=== PATIENT | male | born 1985 | race Caucasian/White ===

== ENCOUNTER 2018-06-03 08:27 | Outpatient (CLI) | payer OTHER ==
--- NOTE | 2018-06-03 11:31 | RAD ---
CERVICAL SPINE 4 VIEWS: Date: 06/03/18 HISTORY: Acute neck pain. 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 COMPARISON: None FINDINGS: Incomplete evaluation of numerous rods at the thoracic spine. There is no acute fracture or malalignm ent of the cervical spine. Low grade narrowing of C3-4 and C4-5 disc space. The open-mouth odontoid view appears unremarkable. IMPRESSION: 1. No acute abnormality of the cervical spine. 2. What appears to be some mild neural foraminal narrowing on the right at C1-2, although may be pos itional. POS: OFF
== END 2018-06-03 08:28 | disposition home or self-care (01) ==
LOC: MADRAD 08:27
PROVIDERS: ATTEND Physician Assistant
DX: M25.512 Pain in left shoulder (principal)
CPT/HCPCS: 72050

== ENCOUNTER 2022-02-25 14:51 | Emergency (ER) | payer MEDICARE ==
[2022-02-25 15:37] LABS: #Lymphocytes 0.7 thou/uL (1.20-3.40); #Monocytes 0.3 thou/uL (0.11-0.59); #Neutrophils 6.5 thou/uL (1.40-6.50); %Basophils 0.5 % (0.0-1.0); %Eosinophils 0.3 % (0.0-10.0); %Lymphocytes 9.3 % (21.0-51.0); %Monocytes 4.3 % (0.0-10.0); %Neutrophils 85.6 % (42.0-75.0); Anisocytosis SLIGHT = 6-15 cells (100X) (0-5/hpf); Hemoglobin 12.3 g/dL (14.0-18.0); Hypochromia SLIGHT = 6-15 cells (100X) (0-5/hpf); MDiff Complete? YES; Macrocytosis SLIGHT = 6-15 cells (100X) (0-5/hpf); Mean Corpuscular HGB CONC 35.8 g/dL (32.0-36.0); Mean Corpuscular Hemoglobin 36.4 pg (27.0-31.0); Mean Corpuscular Volume 101.9 fL (78.0-98.0); Mean Platelet Volume 6.3 fL (7.4-10.4); Platelet Count 177 thou/uL (130-400); Platelet Morphology Comment Appears Adequate; RBC Distribution Width 12.7 % (11.5-14.5); Red Blood Cell (RBC) Count 3.36 mill/uL (4.70-6.10); White Blood Cell (WBC) Count 7.5 thou/uL (4.8-10.8)
[2022-02-25 15:38] LABS: ALT (SGPT) 10 U/L (8-55); AST (SGOT) 18 U/L (5-34); Albumin 3.9 g/dL (3.5-5.0); Alkaline Phosphatase 60 U/L (40-110); Anion Gap 14 mmol/L (10-20); BUN (Urea Nitrogen) 11 mg/dL (8.9-20.6); Bilirubin, Total 0.6 mg/dL (0.2-1.2); CK (CPK) 429 U/L (30-200); Calc. Creatinine Clearance 0 mL/min (70-130); Calcium 8.8 mg/dL (7.8-10.44); Carbon Dioxide 25 mmol/L (22-29); Chloride 111 mmol/L (98-107); Estimated GFR 122; Globulin 2.4 g/dL (2.4-3.5); Glucose 86 mg/dL (70-105); Magnesium 1.7 mg/dL (1.6-2.6); Potassium 3.7 mmol/L (3.5-5.1); Protein, Total 6.3 g/dL (6.0-8.3); Sodium 146 mmol/L (136-145)
[2022-02-25 15:59] LABS: INR-International Normal Ratio 1.1; Prothrombin Time 14.1 sec (12.0-14.7)
[2022-02-25 16:02] LABS: PTT 121.5 sec (22.9-36.1)
[2022-02-25] MEDS ORDERED: Lactated Ringer's 1,000 ML ONE (16:09)
== END 2022-02-25 17:20 | disposition home or self-care (01) ==
LOC: MADERS 14:51
DX: E86.0 Dehydration (principal); R53.1 Weakness; R79.1 Abnormal coagulation profile; G35 Multiple sclerosis
CPT/HCPCS: 70450; 80053; 82550; 83605; 83735; 84443; 84484; 85025; 85610; 85730; 93005; 94760; J7120

== ENCOUNTER 2022-06-05 17:54 | Emergency (ER) | payer MEDICARE ==
[~2022-06-05 17:54] MED LIST: Iopamidol 370 76% 100 ML VIAL ONE
[2022-06-05] MEDS ORDERED: Sodium Chloride 0.9% 2,000 ML ONE (18:26)
[2022-06-05] MEDS ORDERED: Acetaminophen 325 MG TAB ONE (18:26)
[2022-06-05 18:47] LABS: Anisocytosis SLIGHT = 6-15 cells (100X) (0-5/hpf); Band 5 % (5-11); Eosinophils 1 % (0-10); Hemoglobin 13.3 g/dL (14.0-18.0); Lymphocytes 6 % (21-51); MDiff Complete? YES; Macrocytosis SLIGHT = 6-15 cells (100X) (0-5/hpf); Mean Corpuscular HGB CONC 37.6 g/dL (32.0-36.0); Mean Corpuscular Volume 109.1 fl (78.0-98.0); Monocytes 8 % (0-10); Neutrophil 80 % (42-75); Platelet Count 186 thou/uL (130-400); Platelet Morphology Comment Appears Adequate; RBC Distribution Width 12.6 % (11.5-14.5); Red Blood Cell (RBC) Count 3.26 mill/uL (4.70-6.10); White Blood Cell (WBC) Count 11.2 thou/uL (4.8-10.8)
[2022-06-05 18:51] LABS: ALT (SGPT) 9 U/L (8-55); AST (SGOT) 15 U/L (5-34); Albumin 4.1 g/dL (3.5-5.0); Alcohol Less than 10 mg/dL (Less than 10); Alkaline Phosphatase 79 U/L (40-110); Anion Gap 16 mmol/L (10-20); BUN (Urea Nitrogen) 11 mg/dL (8.9-20.6); Bilirubin, Total 0.7 mg/dL (0.2-1.2); CK (CPK) 65 U/L (30-200); Calc. Creatinine Clearance 0 mL/min (70-130); Calcium 9.9 mg/dL (7.8-10.44); Carbon Dioxide 25 mmol/L (22-29); Chloride 100 mmol/L (98-107); Estimated GFR 119; Globulin 3.3 g/dL (2.4-3.5); Glucose 109 mg/dL (70-105); Potassium 3.8 mmol/L (3.5-5.1); Protein, Total 7.4 g/dL (6.0-8.3); Sodium 137 mmol/L (136-145)
[2022-06-05 19:02] LABS: Bilirubin Negative (Negative); Blood, Urine Trace (Negative); Clarity Slightly Cloudy (Clear); Glucose, Urine (Dipstick) Negative (Negative); Ketone, Urine Negative (Negative); Leukocyte Large (Negative); Nitrite Positive (Negative); Protein, Urine (Dipstick) Negative (Neg-Trace); Urobilinogen 0.2 mg/dL (Less than 2)
[2022-06-05 19:09] LABS: RBC/HPF 0-3 HPF (0-3); Squamous Epithelial 0-3 HPF (0-3); WBC/HPF 21-50 HPF (0-3)
[2022-06-05 19:10] LABS: Bacteria/HPF 4+ HPF (None Seen)
[2022-06-05 19:13] LABS: Amphetamine Not Detected (NotDetected); Barbiturates Screen Not Detected (NotDetected); Benzodiazepine Screen Not Detected (NotDetected); Cocaine Metabolite Screen Not Detected (NotDetected); Medtox Control Line Valid? VALID (VALID); Methadone Not Detected (NotDetected); Methamphetamine Not Detected (NotDetected); Opiate Screen Not Detected (NotDetected); Oxycodone Screen Not Detected (NotDetected); Phencyclidine (PCP) Not Detected (NotDetected); THC/Cannabinoid Screen Not Detected (NotDetected); Tricyclic Screen Not Detected (NotDetected)
== END 2022-06-05 22:06 | disposition short-term general hospital (02) ==
LOC: MADERS 17:54
DX: A41.9 Sepsis, unspecified organism (principal); N39.0 Urinary tract infection, site not specified; G35 Multiple sclerosis; F17.210 Nicotine dependence, cigarettes, uncomplicated; Z79.899 Other long term (current) drug therapy
CPT/HCPCS: 36415; 51702; 70450; 71045; 74177; 80053; 80306; 80307; 81003; 81015; 82550; 83605; 84443; 84484; 85025; 87040; 87077; 87086; 87149; 87186; 87804; 93005; 96361; 96365; J1956; J7050; Q9967

== ENCOUNTER 2022-06-30 19:31 | Emergency (ER) | payer MEDICARE ==
[2022-06-30 20:28] LABS: Bilirubin Negative (Negative); Blood, Urine Negative (Negative); Clarity Clear (Clear); Glucose, Urine (Dipstick) Negative (Negative); Ketone, Urine Negative (Negative); Leukocyte Trace (Negative); Nitrite Negative (Negative); Protein, Urine (Dipstick) Negative (Neg-Trace); Specific Gravity, Urine 1.015 (1.005-1.030); Urobilinogen 0.2 mg/dL (Less than 2)
[2022-06-30 20:31] LABS: Bacteria/HPF 1+ HPF (None Seen); RBC/HPF None Seen HPF (0-3); Squamous Epithelial 0-3 HPF (0-3)
[2022-06-30] MEDS ORDERED: Cephalexin 500 MG CAP ONE (21:09)
== END 2022-06-30 22:00 | disposition home or self-care (01) ==
LOC: MADERS 19:31
DX: R33.9 Retention of urine, unspecified (principal); N39.0 Urinary tract infection, site not specified; F17.210 Nicotine dependence, cigarettes, uncomplicated
CPT/HCPCS: 51702; 81003; 81015

== ENCOUNTER 2022-08-18 10:12 | Emergency (ER) | payer MEDICARE ==
[2022-08-18 11:27] LABS: Bilirubin Negative (Negative); Blood, Urine Moderate (Negative); Glucose, Urine (Dipstick) Negative (Negative); Ketone, Urine Trace mg/dL (Negative); Leukocyte Trace (Negative); Nitrite Negative (Negative); Protein, Urine (Dipstick) Negative (Neg-Trace); Specific Gravity, Urine 1.015 (1.005-1.030); Urobilinogen 0.2 mg/dL (Less than 2)
[2022-08-18 11:28] LABS: Clarity Hazy (Clear)
[2022-08-18 11:33] LABS: Bacteria/HPF Rare-Few HPF (None Seen); RBC/HPF 21-50 HPF (0-3); WBC/HPF 0-3 HPF (0-3)
[2022-08-18 11:34] LABS: Squamous Epithelial 0-3 HPF (0-3)
== END 2022-08-18 11:49 | disposition home or self-care (01) ==
LOC: MADERS 10:12
DX: Z46.6 Encounter for fitting and adjustment of urinary device (principal)
CPT/HCPCS: 51702; 81003; 81015

== ENCOUNTER 2023-02-12 08:18 | Emergency (ER) | payer MEDICARE ==
[2023-02-12 08:48] LABS: Bilirubin Negative (Negative); Blood, Urine Trace (Negative); Clarity Slightly Cloudy (Clear); Glucose, Urine (Dipstick) Negative (Negative); Ketone, Urine Trace mg/dL (Negative); Leukocyte Moderate (Negative); Nitrite Positive (Negative); Protein, Urine (Dipstick) Negative (Neg-Trace); Specific Gravity, Urine 1.025 (1.005-1.030); Urobilinogen 0.2 mg/dL (Less than 2); pH, Urine 7.5 (5.0-9.0)
[2023-02-12] MEDS ORDERED: Vancomycin 1 GM VIAL ONE (08:52)
[2023-02-12] MEDS ORDERED: Cefepime 2 GM VIAL ONE (08:52)
[2023-02-12] MEDS ORDERED: Sodium Chloride 0.9% 250 ML 250 ML ONE (08:52)
[2023-02-12] MEDS ORDERED: Sodium Chloride 0.9% 100 ML ONE (08:52)
[2023-02-12 08:54] LABS: #Basophils 0.1 thou/uL (0.0-0.2); #Lymphocytes 0.5 thou/uL (1.20-3.40); #Monocytes 0.7 thou/uL (0.11-0.59); #Neutrophils 10.4 thou/uL (1.40-6.50); %Basophils 0.6 % (0.0-1.0); %Eosinophils 0.3 % (0.0-10.0); %Lymphocytes 4.3 % (21.0-51.0); %Monocytes 5.9 % (0.0-10.0); %Neutrophils 88.9 % (42.0-75.0); Hemoglobin 13.8 g/dL (14.0-18.0); Mean Corpuscular HGB CONC 34.7 g/dL (32.0-36.0); Mean Corpuscular Hemoglobin 35.5 pg (27.0-31.0); Mean Corpuscular Volume 102.1 fl (78.0-98.0); Platelet Count 181 10x3/uL (130-400); Red Blood Cell (RBC) Count 3.89 mill/uL (4.70-6.10); White Blood Cell (WBC) Count 11.7 10x3/uL (4.8-10.8)
[2023-02-12 09:04] LABS: ALT (SGPT) 12 U/L (8-55); AST (SGOT) 13 U/L (5-34); Albumin 3.5 g/dL (3.5-5.0); Alkaline Phosphatase 79 U/L (40-110); Anion Gap 11 mmol/L (10-20); BUN (Urea Nitrogen) 9 mg/dL (8.9-20.6); Bilirubin, Total 0.5 mg/dL (0.2-1.2); Calc. Creatinine Clearance 0 mL/min (70-130); Calcium 8.2 mg/dL (7.8-10.44); Carbon Dioxide 25 mmol/L (22-29); Chloride 110 mmol/L (98-107); Estimated GFR 121; Globulin 2.3 g/dL (2.4-3.5); Glucose 82 mg/dL (70-105); Protein, Total 5.8 g/dL (6.0-8.3); Sodium 143 mmol/L (136-145)
[2023-02-12 09:05] LABS: RBC/HPF 0-3 HPF (0-3)
[2023-02-12 09:06] LABS: Bacteria/HPF 2+ HPF (None Seen); CAUTI Indications for Culture Alt mental st,lethar; Squamous Epithelial 0-3 HPF (0-3); WBC/HPF 21-50 HPF (0-3)
[2023-02-12 09:07] LABS: Urine Culture Reflex Yes Yes
[2023-02-12] MEDS ORDERED: Sodium Chloride 0.9% 50 ML ONE (09:12)
[2023-02-12] MEDS ORDERED: Potassium Chloride 20 MEQ TAB ONE (09:33)
== END 2023-02-12 10:28 | disposition short-term general hospital (02) ==
LOC: MADERS 08:18
DX: N39.0 Urinary tract infection, site not specified (principal); A41.9 Sepsis, unspecified organism; F17.210 Nicotine dependence, cigarettes, uncomplicated
CPT/HCPCS: 71045; 80053; 81001; 83605; 85025; 87040; 87086; 87804; 96365; J0692; J3370; J3490; J7050

== ENCOUNTER 2024-02-29 12:08 | Emergency (ER) | payer MEDICARE ==
[2024-02-29 12:31] LABS: Bilirubin Negative (Negative); Blood, Urine Large (Negative); Clarity Cloudy (Clear); Glucose, Urine (Dipstick) Negative (Negative); Ketone, Urine Negative (Negative); Leukocyte Large (Negative); Nitrite Positive (Negative); Protein, Urine (Dipstick) Negative (Neg-Trace); Specific Gravity, Urine 1.015 (1.005-1.030); Urobilinogen 0.2 mg/dL (Less than 2)
[2024-02-29] MEDS ORDERED: Acetaminophen 325 MG TAB ONE (12:32)
[2024-02-29] MEDS ORDERED: Ketorolac Tromethamine 30 MG (1 mL) VIAL ONE (12:32)
[2024-02-29] MEDS ORDERED: Cefepime 2 GM VIAL ONE (12:32)
[2024-02-29] MEDS ORDERED: Sodium Chloride 0.9% 100 ML ONE ×2 (12:33→14:24)
[2024-02-29] MEDS ORDERED: Vancomycin 1 GM VIAL ONE (12:33)
[2024-02-29] MEDS ORDERED: Sodium Chloride 0.9% 250 ML 250 ML ONE (12:33)
[2024-02-29] MEDS ORDERED: Lactated Ringer's 2,000 ML ONE (12:33)
[2024-02-29 12:46] LABS: Bacteria/HPF 1+ HPF (None Seen); CAUTI Indications for Culture Alt mental st,lethar; RBC/HPF 21-50 HPF (0-3); Squamous Epithelial 0-3 HPF (0-3); WBC/HPF 21-50 HPF (0-3)
[2024-02-29 12:47] LABS: Urine Culture Reflex Yes Yes
[2024-02-29 12:56] LABS: INR-International Normal Ratio 1.4; Prothrombin Time 17.1 sec (12.0-14.7)
[2024-02-29 12:57] LABS: Base Excess-Venous 3.1 mmol/L (-2.0 to 3.0); Bicarbonate (HCO3v) 22.8 mmol/L (22.0-28.0); Calcium, Ionized 1.01 mmol/L (1.15-1.33); Chloride 111 mmol/L (98-107); Hemoglobin - Calc 15.2 g/dL (14.0-18.0); PTT 33.7 sec (22.9-36.1); Potassium 3.8 mmol/L (3.5-5.1); Sodium 141 mmol/L (138-145); T. Carbon Dioxide 23.5 mmol/L (22.0-28.0); vO2 Saturation-calc 99.9 % (60.0-85.0)
[2024-02-29 12:59] LABS: SARS-CoV-2 NAA Rapid Test Not Detected (NotDetected)
[2024-02-29 13:01] LABS: Band 15 % (5-11); Hematocrit 46.6 % (42.0-52.0); Hemoglobin 15.1 g/dL (14.0-18.0); Hypochromia SLIGHT = 6-15 cells (100X) (0-5/hpf); Lymphocytes 2 % (21-51); MDiff Complete? YES; Mean Corpuscular HGB CONC 32.3 g/dL (32.0-36.0); Mean Corpuscular Hemoglobin 30.8 pg (27.0-31.0); Mean Corpuscular Volume 95.2 fl (78.0-98.0); Mean Platelet Volume 7.1 fL (7.4-10.4); Neutrophil 83 % (42-75); Platelet Adequacy Comment Appears Decreased; Platelet Count 85 10x3/uL (130-400); RBC Distribution Width 11.7 % (11.5-14.5); White Blood Cell (WBC) Count 7.6 10x3/uL (4.8-10.8)
[2024-02-29 13:06] LABS: ALT (SGPT) 35 U/L (8-55); AST (SGOT) 44 U/L (5-34); Albumin 3.5 g/dL (3.5-5.0); Alkaline Phosphatase 107 U/L (40-110); Anion Gap 15 mmol/L (10-20); BUN (Urea Nitrogen) 9 mg/dL (8.9-20.6); Bilirubin, Total 0.7 mg/dL (0.2-1.2); Calc. Creatinine Clearance 0 mL/min (70-130); Calcium 8.8 mg/dL (7.8-10.44); Carbon Dioxide 20 mmol/L (22-29); Chloride 110 mmol/L (98-107); Estimated GFR 120; Globulin 2.3 g/dL (2.4-3.5); Glucose 94 mg/dL (70-105); Magnesium 1.4 mg/dL (1.6-2.6); Potassium 3.4 mmol/L (3.5-5.1); Protein, Total 5.8 g/dL (6.0-8.3); Sodium 142 mmol/L (136-145)
[2024-02-29 13:14] LABS: Acetaminophen Less than 10 mcg/mL (10.0-30.0); Alcohol Less than 10.0 mg/dL (Less than 10); Salicylate Less than 8.0 mg/dL (15.0-30.0)
[2024-02-29 13:16] LABS: Amphetamine Not Detected (NotDetected); Barbiturates Screen Not Detected (NotDetected); Benzodiazepine Screen Not Detected (NotDetected); Cocaine Metabolite Screen Not Detected (NotDetected); Methadone Not Detected (NotDetected); Methamphetamine Not Detected (NotDetected); Opiate Screen Not Detected (NotDetected); Oxycodone Screen Not Detected (NotDetected); Phencyclidine (PCP) Not Detected (NotDetected); THC/Cannabinoid Screen Not Detected (NotDetected); Tricyclic Screen Not Detected (NotDetected)
[2024-02-29 13:19] LABS: Troponin I 0.098 ng/mL (< 0.028)
[2024-02-29] MEDS ORDERED: Magnesium 2 GM/50 ML BAG (IN WATER) ONE (13:28)
[2024-02-29] MEDS ORDERED: Potassium Bicarbonate/Cit Ac 20 MEQ TAB ONE (13:29)
[2024-02-29 13:46] LABS: Influenza A by NAA Not Detected (NotDetected); Influenza B by NAA Not Detected (NotDetected)
[2024-02-29] MEDS ORDERED: Vancomycin HCl 750 MG in Sodium Chloride 0.9% 250 ML 250 ML IVPB SCH (14:00)
[2024-02-29] MEDS ORDERED: Vancomycin HCl 500 MG VIAL ONE (14:24)
== END 2024-02-29 15:37 | disposition short-term general hospital (02) ==
LOC: MADERS 12:08
DX: A41.9 Sepsis, unspecified organism (principal); E87.6 Hypokalemia; E83.42 Hypomagnesemia; I21.4 Non-ST elevation (NSTEMI) myocardial infarction; E87.29 Other acidosis; D69.6 Thrombocytopenia, unspecified; F17.210 Nicotine dependence, cigarettes, uncomplicated
CPT/HCPCS: 0240U; 71045; 80306; 80307; 81001; 82330; 82435; 82803; 83605; 83735; 84132; 84295; 84484; 85014; 85610; 85730; 87040; 87077; 87086; 87149 ×2; 87186; 93005; 94760; 96365; 96367; 96368; 96375; 99285; J0692; J1885; J3370 ×2; J3475; J7050; J7120; 36415; 80053; 84443; 85025

== ENCOUNTER 2024-05-02 02:56 | Emergency (ER) | payer MEDICARE ==
[2024-05-02] MEDS ORDERED: HYDROmorphone 0.5 MG/0.5 ML SYRINGE ONE (03:30)
[2024-05-02] MEDS ORDERED: Ondansetron PF 4 MG/2 ML Vial ONE (03:30)
[2024-05-02 03:46] LABS: Hematocrit 45.4 % (42.0-52.0); Hemoglobin 15.5 g/dL (14.0-18.0); MDiff Complete? YES; Mean Corpuscular HGB CONC 34.2 g/dL (32.0-36.0); Mean Corpuscular Hemoglobin 32.3 pg (27.0-31.0); Mean Corpuscular Volume 94.4 fl (78.0-98.0); Mean Platelet Volume 6.9 fL (7.4-10.4); Platelet Count 233 10x3/uL (130-400); RBC Distribution Width 11.7 % (11.5-14.5); Red Blood Cell (RBC) Count 4.82 mill/uL (4.70-6.10); White Blood Cell (WBC) Count 15.6 10x3/uL (4.8-10.8)
[2024-05-02 03:47] LABS: Eosinophils 2 % (0-10); Lymphocytes 11 % (21-51); Monocytes 5 % (0-10); Neutrophil 82 % (42-75)
[2024-05-02 04:02] LABS: ALT (SGPT) 24 U/L (8-55); AST (SGOT) 31 U/L (5-34); Alkaline Phosphatase 65 U/L (40-110); Anion Gap 17 mmol/L (10-20); BUN (Urea Nitrogen) 14 mg/dL (8.9-20.6); Bilirubin, Total 0.3 mg/dL (0.2-1.2); Calc. Creatinine Clearance 0 mL/min (70-130); Calcium 9.2 mg/dL (7.8-10.44); Carbon Dioxide 20 mmol/L (22-29); Chloride 107 mmol/L (98-107); Estimated GFR 118; Globulin 3.3 g/dL (2.4-3.5); Glucose 86 mg/dL (70-105); Lipase 16 U/L (8-78); Potassium 4.6 mmol/L (3.5-5.1); Protein, Total 7.3 g/dL (6.0-8.3); Sodium 139 mmol/L (136-145)
[2024-05-02 04:28] LABS: Bilirubin Negative (Negative); Blood, Urine Large (Negative); Glucose, Urine (Dipstick) Negative (Negative); Ketone, Urine Trace mg/dL (Negative); Leukocyte Moderate (Negative); Nitrite Positive (Negative); Protein, Urine (Dipstick) 100 mg/dL (Neg-Trace); Specific Gravity, Urine 1.015 (1.005-1.030); Urobilinogen 0.2 mg/dL (Less than 2)
[2024-05-02 04:31] LABS: Bacteria/HPF 3+ HPF (None Seen); CAUTI Indications for Culture Pelvic or flank pain; Clarity Turbid (Clear); RBC/HPF Greater than 50 HPF (0-3); WBC/HPF Greater than 50 HPF (0-3)
[2024-05-02 04:32] LABS: Urine Culture Reflex Yes Yes
[2024-05-02] MEDS ORDERED: cefTRIAXone (ROCEPHIN) 1 GM VIAL ONE (05:24)
== END 2024-05-02 09:07 | disposition home or self-care (01) ==
LOC: MADERS 02:56
DX: T83.098A Other mechanical complication of other urinary catheter, initial encounter (principal); N39.0 Urinary tract infection, site not specified; F17.210 Nicotine dependence, cigarettes, uncomplicated
CPT/HCPCS: 51102; 74176; 80053; 81001; 83690; 85025; 87077; 87086; 87186; 96374; 96375; 99284; J0696; J1170; J2405

== ENCOUNTER 2024-10-14 14:43 | Emergency (ER) | payer OTHER ==
[2024-10-14 15:20] LABS: Hematocrit 42.8 % (42.0-52.0); Hemoglobin 14.1 g/dL (14.0-18.0); Mean Corpuscular Hemoglobin 30.7 pg (27.0-31.0); Mean Platelet Volume 6.1 fL (7.4-10.4); Platelet Count 388 10x3/uL (130-400); RBC Distribution Width 11.2 % (11.5-14.5); Red Blood Cell (RBC) Count 4.61 mill/uL (4.70-6.10); White Blood Cell (WBC) Count 17.7 10x3/uL (4.8-10.8)
[2024-10-14] MEDS ORDERED: Sodium Chloride 0.9% 1,000 ML ONE ×2 (15:28→17:21)
[2024-10-14 15:34] LABS: ALT (SGPT) 19 U/L (Less than 45); AST (SGOT) 30 U/L (11-34); Albumin 3.5 g/dL (3.1-4.5); Alkaline Phosphatase 91 U/L (40-110); Anion Gap 17 mmol/L (10-20); BUN (Urea Nitrogen) 16 mg/dL (8.9-20.6); Bilirubin, Total 0.3 mg/dL (0.3-1.2); Calc. Creatinine Clearance 0 mL/min (70-130); Calcium 9.9 mg/dL (7.8-10.44); Carbon Dioxide 24 mmol/L (22-29); Chloride 104 mmol/L (98-107); Estimated GFR 125; Globulin 4.7 g/dL (2.4-3.5); Glucose 116 mg/dL (70-105); Potassium 4.1 mmol/L (3.5-5.1); Protein, Total 8.2 g/dL (6.0-8.3); Sodium 141 mmol/L (136-145)
[2024-10-14 15:49] LABS: Band 1 % (5-11); Eosinophils 1 % (0-10); Lymphocytes 2 % (21-51); MDiff Complete? YES; Manual Diff?? YES; Monocytes 2 % (0-10); Neutrophil 94 % (42-75); RBC Morph Comment Within Normal Limits
[2024-10-14 15:50] LABS: Platelet Adequacy Comment Appears Adequate
[2024-10-14 15:51] LABS: INR-International Normal Ratio 1.1; Prothrombin Time 14.7 sec (12.0-14.7)
[2024-10-14 15:52] LABS: PTT 34.2 sec (22.9-36.1)
[2024-10-14 15:53] LABS: Bilirubin Negative (Negative); Blood, Urine Small (Negative); Glucose, Urine (Dipstick) Negative (Negative); Ketone, Urine Negative (Negative); Leukocyte Moderate (Negative); Nitrite Positive (Negative); Protein, Urine (Dipstick) Trace mg/dL (Neg-Trace); Urobilinogen 0.2 mg/dL (Less than 2); pH, Urine 8.5 (5.0-9.0)
[2024-10-14 15:54] LABS: Clarity Very Cloudy (Clear)
[2024-10-14 15:59] LABS: CAUTI Indications for Culture Fever or rigors; Squamous Epithelial 0-3 HPF (0-3)
[2024-10-14 16:00] LABS: Bacteria/HPF 1+ HPF (None Seen); Urine Culture Reflex Yes Yes
[2024-10-14] MEDS ORDERED: cefTRIAXone (ROCEPHIN) 2 GM VIAL ONE (16:27)
[2024-10-14] MEDS ORDERED: Sodium Chloride 0.9% 100 ML ONE (16:27)
[2024-10-14] MEDS ORDERED: Acetaminophen 650 MG Suppository ONE (17:21)
== END 2024-10-14 20:00 | disposition home or self-care (01) ==
LOC: MADERS 14:43
DX: N39.0 Urinary tract infection, site not specified (principal); B37.0 Candidal stomatitis; L21.9 Seborrheic dermatitis, unspecified; F17.210 Nicotine dependence, cigarettes, uncomplicated
CPT/HCPCS: 71045; 80053; 81001; 83605; 85025; 85610; 85730; 87040; 87086; 87428; 94760; J0696; J7030; 36415; 87077; 96365